=== PATIENT | male | born 1995 | race American Indian/Alaskan Native ===

== ENCOUNTER 2020-02-04 18:31 | Emergency (ER) | payer SELFPAY ==
[2020-02-04 18:46] VITALS: BP 119/73
--- NOTE | 2020-02-04 19:40 | Emergency Department Report ---
Chief Complaint: Urogenital-Male Stated Complaint: GROIN PAIN Time Seen by Provider: 02/04/20 19:36 - HPI History of Present Illness: 24-year-old -[place] male patient presents with complaints of penile discharge x2 days. He denies any dysuria, hematuria, testicular pain/swelling, penile pain/swelling, lesions, fever, abdominal pain, or swollen/red/painful joints. Patient states he is here to get tested for STDs. He denies any chronic medical issues. - Exam Vital Signs: Vital Signs 02/04/20 18:41 Temperature 98.8 F Pulse Rate 81 Respiratory 20 Rate Blood Pressure 119/73 O2 Sat by Pulse 100 Oximetry MSE screening note: Focused history and physical exam performed. Due to findings the following was ordered: ED Medical Decision Making - Medical Decision Making Patient here for penile discharge for the past 2 days. He denies any red flag symptoms. His vitals are normal he is well-appearing. Recommend patient follows up outpatient for STD testing. Patient provided with [facility] information and a referral for Dr. Dalton. Strict return precautions were discussed in detail with patient who verbalized understanding peer ED Disposition for MSE Clinical Impression: Penile discharge Disposition: Z-07 MED SCREENING EXAM-LEFT Is pt being admited?: No Condition: Stable Instructions: Sexually Transmitted Diseases (ED) Additional Instructions: Please follow-up with 1 of the [facility] provided. If you develop any new or worsening symptoms seek immediate emergency treatment. Referrals: LINDA DALTON MD [Staff Physician] - 02/06/20 ED Physical Exam - General Limitations: No Limitations General appearance: alert, in no apparent distress - Head Head exam: Present: atraumatic, normocephalic - Eye Eye exam: Absent: scleral icterus - Respiratory Respiratory exam: Absent: respiratory distress - Cardiovascular Cardiovascular Exam: Present: regular rate, normal rhythm - GI/Abdominal GI/Abdominal exam: Present: soft. Absent: distended, tenderness, guarding, rebound, rigid - Neurological Exam Neurological exam: Present: alert, oriented X3, normal gait - Psychiatric Psychiatric exam: Present: normal affect, normal mood - Skin Skin exam: Present: warm, dry, intact, normal color. Absent: rash
== END 2020-02-04 19:38 | disposition left against medical advice (07) ==
LOC: ED 18:31
DX: R10.30 Lower abdominal pain, unspecified (principal); Z53.21 Procedure and treatment not carried out due to patient leaving prior to being seen by health care provider